=== PATIENT | female | born 2000 | race Caucasian/White ===

== ENCOUNTER → 2019-09-23 03:55 | Observation (INO) ==
[2019-09-23 02:56] LABS: Bilirubin,Urine Negative (Negative); Blood,Urine Negative (Negative); Clarity,Urine Clear (Clear); Color,Urine Yellow (Yellow); Glucose,Urine (UA) Normal (Normal); Ketones,Urine Negative (Negative); Leukocyte Esterase,Urine Negative (Negative); Nitrite,Urine Negative (Negative); PH,Urine 6.5 pH Units (5.0-8.0); Protein,Urine Negative (Neg-Trace); Specific Gravity,Urine 1.027 (1.010-1.025); Urobilinogen,Urine Normal (Normal)
[2019-09-23 03:07] LABS: Amphetamine Screen,Urine Negative ng/mL (Cutoff=1000); Barbiturate Screen,Urine Negative ng/mL (Cutoff=200); Benzodiazepines Screen,Urine Negative ng/mL (Cutoff=200); Cannabinoid Screen,Urine Negative ng/mL (Cutoff = 50); Cocaine Screen,Urine Negative ng/mL (Cutoff= 300); Opiate Screen,Urine Negative ng/mL (Cutoff=300); Phencyclidine Screen,Urine Negative ng/mL (Cutoff=25)
== END | disposition home or self-care (01) ==
LOC: 1NENULAB
PROVIDERS: ADMIT Advanced Practice Midwife; ATTEND Advanced Practice Midwife

== ENCOUNTER 2019-11-06 02:26 | Observation (INO) ==
[2019-11-06 02:52] LABS: Bilirubin,Urine Negative (Negative); Blood,Urine Negative (Negative); Clarity,Urine Cloudy (Clear); Color,Urine Yellow (Yellow); Glucose,Urine (UA) Normal (Normal); Ketones,Urine Negative (Negative); Leukocyte Esterase,Urine Small (Negative); Nitrite,Urine Negative (Negative); PH,Urine 6.5 pH Units (5.0-8.0); Protein,Urine Negative (Neg-Trace); Specific Gravity,Urine 1.018 (1.010-1.025); Urobilinogen,Urine Normal (Normal)
[2019-11-06 02:55] LABS: Bacteria,Urine Few per hpf (None-Few); Hyaline Casts,Urine None Seen per lpf (None-Few); RBC,Urine 0-3 per hpf (0-3); Squamous Epithelial Cell,Urine Many per lpf (None-Few); WBC,Urine 15-30 per hpf (0-3)
[2019-11-06] MEDS ORDERED: Sennosides/Docusate Sodium TABLET PO ONE (03:50)
== END 2019-11-06 04:10 | disposition home or self-care (01) ==
LOC: 1NENULAB
PROVIDERS: ADMIT Advanced Practice Midwife; ATTEND Advanced Practice Midwife

== ENCOUNTER 2020-01-04 23:11 | Observation (INO) ==
[2020-01-05 00:19] LABS: Bacteria,Urine Moderate per hpf (None-Few); Hyaline Casts,Urine Moderate per lpf (None-Few); Squamous Epithelial Cell,Urine Many per lpf (None-Few); WBC,Urine 15-30 per hpf (0-3)
[2020-01-05 00:26] LABS: Bilirubin,Urine Negative (Negative); Blood,Urine Negative (Negative); Clarity,Urine Cloudy (Clear); Color,Urine Yellow (Yellow); Glucose,Urine (UA) Normal (Normal); Ketones,Urine Negative (Negative); Leukocyte Esterase,Urine Small (Negative); Nitrite,Urine Negative (Negative); PH,Urine 7.5 pH Units (5.0-8.0); Protein,Urine Trace mg/dL (Neg-Trace); Specific Gravity,Urine 1.027 (1.010-1.025); Urobilinogen,Urine Normal (Normal)
[2020-01-05 00:36] LABS: Mucus,Urine Few per lpf (Few)
== END 2020-01-05 00:57 | disposition home or self-care (01) ==
LOC: 1NENULAB
PROVIDERS: ADMIT Registered Nurse; ATTEND Registered Nurse

== ENCOUNTER 2020-01-15 07:14 | Inpatient (IN) ==
[2020-01-15] MEDS ORDERED: Metoclopramide 10 MG/2 ML VIAL IVP PRN (07:53)
[2020-01-15] MEDS ORDERED: Famotidine 20 MG/2 ML VIAL IVP PRN (07:53)
[2020-01-15] MEDS ORDERED: *HR* FentaNYL (PF) 100 MCG/2 ML VIAL IVP PRN (07:53)
[2020-01-15] MEDS ORDERED: Lidocaine 1% 20 ML MDV INFILT PRN (07:53)
[2020-01-15 08:09] LABS: Hematocrit 34.5 % (35.3-44.9); Hemoglobin 11.2 g/dL (11.5-15.4); Immature Platelets 23.3 % (1.1-6.1); Mean Corpuscular HGB Conc 32.5 g/dL (31.6-35.5); Mean Corpuscular Hemoglobin 30.8 pg (28.0-33.3); Mean Corpuscular Volume 94.8 fL (83.0-100.0); Platelet Count 278 K/mcL (140-400); Red Blood Count 3.64 M/mcL (3.82-4.97); Red Cell Distribution Width 14.2 % (11.5-14.5); White Blood Count 14.5 K/mcL (4.3-11.1)
[2020-01-15] MEDS ORDERED: Famotidine 20 MG/2 ML VIAL IVP ONE (08:29)
[2020-01-15] MEDS ORDERED: Oxytocin 20 units/ LR 1000 mL 20 UNIT/1,000 ML BAG IVC SCH ×2 (08:30→21:23)
[2020-01-15 08:58] LABS: Eosinophils # 0.4 K/mcL (0.0-0.6); Lymphocytes # 4.4 K/mcL (0.6-4.6); Monocytes # 0.7 K/mcL (0.0-1.3); Reactive Lymphocytes Present (Not Present)
[2020-01-15 08:59] LABS: Platelet Estimate Normal (Normal)
[2020-01-15] MEDS: Ringers Solution, Lactated 1,000 ML IVC SCH ×3 (09:04→16:14)
[2020-01-15] MEDS ORDERED: EPHEDrine 50 MG/ML VIAL IVP PRN (09:44)
[2020-01-15] MEDS ORDERED: Epidural Premix (fent/bupiv) 110 ML EP SCH (09:45)
[2020-01-15 10:10] LABS: Amphetamine Screen,Urine Negative ng/mL (Cutoff=1000); Barbiturate Screen,Urine Negative ng/mL (Cutoff=200); Benzodiazepines Screen,Urine Negative ng/mL (Cutoff=200); Cannabinoid Screen,Urine Negative ng/mL (Cutoff = 50); Cocaine Screen,Urine Negative ng/mL (Cutoff= 300); Opiate Screen,Urine Negative ng/mL (Cutoff=300); Phencyclidine Screen,Urine Negative ng/mL (Cutoff=25)
[2020-01-15] MEDS: Ondansetron 4 MG/2 ML VIAL IVP PRN ×2 (11:30→19:01)
[2020-01-15] MEDS ORDERED: Benzocaine/Menthol 56 GM AEROSOL SPRAY TP PRN (21:23)
[2020-01-15] MEDS ORDERED: Acetaminophen 325 MG TABLET PO PRN (21:23)
[2020-01-15] MEDS ORDERED: Measles/Mumps/Rubella Vacc 0.5 ML VIAL SQ PRN (21:23)
[2020-01-15] MEDS ORDERED: Lanolin 7 G OINT...G. TP PRN (21:23)
[2020-01-15] MEDS: Ibuprofen 600 MG TABLET PO PRN (23:12)
[2020-01-15] MEDS ORDERED: Preparation H Ointment 57 GM TUBE TP SCH (23:45)
[2020-01-16] MEDS: Ibuprofen 600 MG TABLET PO PRN (07:48)
[2020-01-16] MEDS ORDERED: Prenatal Vit/FA 1 EACH TABLET PO SCH (09:00)
[2020-01-16] MEDS ORDERED: *HR* HYDROcodone/Acet 5/325 mg TABLET PO ONE (10:10)
[2020-01-16] MEDS ORDERED: Ibuprofen 400 MG TABLET PO PRN (10:10)
[2020-01-16 11:03] LABS: Hemoglobin 9.8 g/dL (11.5-15.4); Red Cell Distribution Width 14.2 % (11.5-14.5)
[2020-01-16 11:05] LABS: Hematocrit 30.4 % (35.3-44.9); Immature Platelets 17.1 % (1.1-6.1); Mean Corpuscular HGB Conc 32.2 g/dL (31.6-35.5); Mean Corpuscular Hemoglobin 30.6 pg (28.0-33.3); Mean Platelet Volume 13.5 fL (9.4-12.4); Red Blood Count 3.2 M/mcL (3.82-4.97); White Blood Count 19.6 K/mcL (4.3-11.1)
[2020-01-16 16:10] VITALS: BP 104/67
== END 2020-01-16 21:30 | disposition home or self-care (01) | DRG 560 ==
LOC: 1NENULAB 07:14 → 1NENUOBS 22:12
PROVIDERS: ADMIT Registered Nurse; ATTEND Registered Nurse

== ENCOUNTER → 2022-01-25 12:15 | Observation (INO) ==
[2022-01-25 13:40] LABS: Bilirubin,Urine Negative (Negative); Blood,Urine Negative (Negative); Clarity,Urine Clear (Clear); Color,Urine Light-Yellow (Yellow); Glucose,Urine (UA) Normal (Normal); Ketones,Urine Negative (Negative); Leukocyte Esterase,Urine Negative (Negative); Nitrite,Urine Negative (Negative); PH,Urine 6.5 pH Units (5.0-8.0); Protein,Urine Negative (Neg-Trace); Specific Gravity,Urine 1.009 (1.010-1.025); Urobilinogen,Urine Normal (Normal)
== END | disposition home or self-care (01) ==
LOC: 1NENULAB
PROVIDERS: ADMIT Registered Nurse; ATTEND Registered Nurse

== ENCOUNTER 2022-02-01 06:00 | Inpatient (IN) ==
[2022-02-01] MEDS ORDERED: Naloxone 0.4 MG/ML INJ IVP PRN (06:30)
[2022-02-01] MEDS ORDERED: Metoclopramide 10 MG/2 ML VIAL IVP PRN ×2 (06:30→21:07)
[2022-02-01] MEDS ORDERED: Famotidine 20 MG/2 ML VIAL IVP PRN (06:30)
[2022-02-01 06:57] LABS: Basophils % 0.4 %; Eosinophils # 0.1 K/mcL (0.0-0.6); Eosinophils % 0.7 %; Hematocrit 29.3 % (35.3-44.9); Hemoglobin 9.5 g/dL (11.5-15.4); Immature Granulocytes % 0.4 % (0-4); Immature Platelets 25.3 % (1.1-6.1); Lymphocytes # 3.2 K/mcL (0.6-4.6); Lymphocytes % 39.7 %; Mean Corpuscular HGB Conc 32.4 g/dL (31.6-35.5); Mean Corpuscular Hemoglobin 30.3 pg (28.0-33.3); Mean Corpuscular Volume 93.3 fL (83.0-100.0); Mean Platelet Volume 14.3 fL (9.4-12.4); Monocytes # 0.6 K/mcL (0.0-1.3); Monocytes % 7.6 %; Neutrophils # 4.2 K/mcL (1.6-8.9); Platelet Count 161 K/mcL (140-400); Red Blood Count 3.14 M/mcL (3.82-4.97); Red Cell Distribution Width 14.3 % (11.5-14.5); Segmented Neutrophils % 51.2 %; White Blood Count 8.2 K/mcL (4.3-11.1)
[2022-02-01 07:27] LABS: Influenza A PCR Negative (Negative); Influenza B PCR Negative (Negative); Resp. Syncytial Virus PCR Negative (Negative)
[2022-02-01 07:29] LABS: SARS-CoV-2 by PCR (In House) Negative (Negative)
[2022-02-01] MEDS ORDERED: Famotidine 20 MG/2 ML VIAL IVP ONE (07:33)
[2022-02-01] MEDS ORDERED: EPHEDrine 50 MG/ML VIAL IVP PRN (07:38)
[2022-02-01] MEDS: Ringers Solution, Lactated 1,000 ML IVC SCH ×3 (07:47→16:21)
[2022-02-01] MEDS: Oxytocin 30 UNIT/503 ML BAG IVC SCH ×2 (07:51→17:45)
[2022-02-01] MEDS: Epidural Premix (fent/bupiv) 110 ML EP SCH ×2 (08:27→16:21)
[2022-02-01 08:57] LABS: Amphetamine Screen,Urine Negative ng/mL (Cutoff=1000); Barbiturate Screen,Urine Negative ng/mL (Cutoff=200); Benzodiazepines Screen,Urine Negative ng/mL (Cutoff=200); Cannabinoid Screen,Urine Negative ng/mL (Cutoff = 50); Cocaine Screen,Urine Negative ng/mL (Cutoff= 300); Opiate Screen,Urine Negative ng/mL (Cutoff=300); Phencyclidine Screen,Urine Negative ng/mL (Cutoff=25)
[2022-02-01] MEDS ORDERED: Azithromycin 500 MG VIAL ONE (16:34)
[2022-02-01] MEDS ORDERED: CeFAZolin 2,000 MG/120 ML BAG IVPB ONE (16:35)
[2022-02-01] MEDS ORDERED: Oxytocin 30 UNIT/503 ML BAG IVC ONE (16:35)
[2022-02-01] MEDS ORDERED: 0.9 % Sodium Chloride 250 ML ONE (16:35)
[2022-02-01] MEDS ORDERED: Ondansetron 4 MG/2 ML VIAL ONE (16:37)
[2022-02-01] MEDS ORDERED: Acetaminophen IV 1,000 MG/100 ML BAG IVPB ONE (16:37)
[2022-02-01] MEDS ORDERED: Lidocaine/EPI 1:200k 2% PF 20 ML VIAL ONE (16:37)
[2022-02-01] MEDS ORDERED: Ketorolac 30 MG/ML VIAL ONE (16:37)
[2022-02-01] MEDS ORDERED: Sodium Bicarbonate 50 MEQ/50 ML VIAL ONE (16:37)
[2022-02-01] MEDS ORDERED: Promethazine 6.25 MG in Water for inj. (sterile) 20 ML IVPB PRN (16:50)
[2022-02-01] MEDS ORDERED: *HR* Labetalol 20 MG/4 ML SYRINGE IVP PRN (16:50)
[2022-02-01] MEDS ORDERED: Ondansetron 4 MG/2 ML VIAL IVP PRN ×2 (16:50→21:07)
[2022-02-01] MEDS ORDERED: Ringers Solution, Lactated 1,000 ML IVC SCH (17:00)
[2022-02-01] MEDS ORDERED: Ringers Solution, Lactated 1,000 ML ONE (17:35)
[2022-02-01] MEDS ORDERED: *HR* Morphine Sulfate/PF 10 MG/10 ML AMPUL ONE (17:47)
[2022-02-01] MEDS ORDERED: *HR* Midazolam HCl 2 MG/2 ML VIAL ONE (17:47)
[2022-02-01] MEDS: *HR* HYDROmorphone PF 0.5 MG/0.5 ML SYRINGE IVP PRN ×2 (18:39→20:21)
[2022-02-01] MEDS ORDERED: Oxytocin 30 UNIT/503 ML BAG IVC SCH (21:07)
[2022-02-02] MEDS: cefOXitin 2,000 MG in Water for inj. (sterile) 10 ML IVP SCH ×3 (00:05→16:01)
[2022-02-02] MEDS: Ibuprofen 600 MG TABLET PO SCH ×4 (03:20→19:14)
[2022-02-02] MEDS: Acetaminophen 325 MG TABLET PO SCH ×4 (03:20→19:13)
[2022-02-02] MEDS: Simethicone 80 MG TAB.CHEW PO PRN (04:42)
[2022-02-02 04:44] LABS: Basophils % 0.1 %; Hematocrit 23.3 % (35.3-44.9); Mean Corpuscular Volume 92.5 fL (83.0-100.0); Red Blood Count 2.52 M/mcL (3.82-4.97); Segmented Neutrophils % 85.3 %
[2022-02-02 04:46] LABS: Hemoglobin 7.7 g/dL (11.5-15.4); Immature Granulocytes % 0.5 % (0-4); Immature Platelets 22.3 % (1.1-6.1); Lymphocytes # 1.5 K/mcL (0.6-4.6); Mean Corpuscular Hemoglobin 30.6 pg (28.0-33.3); Monocytes # 0.9 K/mcL (0.0-1.3); Monocytes % 5.1 %; Platelet Count 156 K/mcL (140-400); Red Cell Distribution Width 13.8 % (11.5-14.5); White Blood Count 16.7 K/mcL (4.3-11.1)
[2022-02-02 05:12] LABS: Neutrophils # 14.3 K/mcL (1.6-8.9)
[2022-02-02] MEDS: Prenatal Vit/FA 1 EACH TABLET PO SCH (07:55)
[2022-02-02] MEDS: *HR* OxyCODONE Immed Rel 5 MG TABLET PO PRN ×2 (07:55→16:01)
[2022-02-03] MEDS: *HR* OxyCODONE Immed Rel 5 MG TABLET PO PRN ×3 (00:46→09:25)
[2022-02-03] MEDS: Ibuprofen 600 MG TABLET PO SCH ×3 (05:28→13:57)
[2022-02-03] MEDS: Prenatal Vit/FA 1 EACH TABLET PO SCH (09:26)
[2022-02-03 09:52] LABS: Immature Platelets 17.5 % (1.1-6.1); Mean Corpuscular HGB Conc 31.8 g/dL (31.6-35.5); Mean Corpuscular Hemoglobin 30.6 pg (28.0-33.3); Mean Corpuscular Volume 96.1 fL (83.0-100.0); Mean Platelet Volume 13.7 fL (9.4-12.4); Red Blood Count 2.29 M/mcL (3.82-4.97); Red Cell Distribution Width 14.5 % (11.5-14.5); White Blood Count 10.7 K/mcL (4.3-11.1)
[2022-02-03] MEDS ORDERED: 0.9 % Sodium Chloride 500 ML ONE (10:46)
[2022-02-03] MEDS: Simethicone 80 MG TAB.CHEW PO PRN (12:48)
[2022-02-03] MEDS: Acetaminophen 325 MG TABLET PO SCH ×2 (12:48→13:56)
[2022-02-03 13:53] VITALS: BP 109/65; PULSE 86; TEMP 97.7; O2SAT 98
== END 2022-02-03 16:47 | disposition home or self-care (01) | DRG 540 ==
LOC: 1NENULAB 06:10 → 1NENUOBS 21:07
PROVIDERS: ADMIT Obstetrics & Gynecology; ATTEND Obstetrics & Gynecology